=== PATIENT | male | born 1965 | race Caucasian/White ===

== ENCOUNTER → 2023-03-23 | Outpatient (CLI) | payer OTHER ==
[2023-03-23 16:00] LABS: Chol/HDL Ratio 3.31 Ratio; LDL Cholesterol,Calculated 127.1 mg/dL (0.0-131.0)
== END | disposition home or self-care (01) ==
LOC: LABWHC1 07:45
PROVIDERS: ATTEND Internal Medicine Cardiovascular Disease
DX: E78.2 Mixed hyperlipidemia (principal)
CPT/HCPCS: 36415; 80061